=== PATIENT | female | born 1995 | race Caucasian/White ===

== ENCOUNTER 2017-06-17 16:40 | Emergency (ER) | payer OTHER ==
[~2017-06-17] VITALS: Ht 175.3 cm; Wt 118.5 kg
[2017-06-17] MEDS ORDERED: SERT-155 PO (16:51)
[2017-06-17] MEDS ORDERED: METO1TAB7 PO (16:51)
[2017-06-17] MEDS ORDERED: MONT10TA2 PO (16:51)
[2017-06-17] MEDS ORDERED: DOXY100C37 PO (18:33)
[2017-06-17] MEDS ORDERED: TESS100C PO (18:34)
[2017-06-17] MEDS ORDERED: VENTAER INH (18:34)
[2017-06-17 18:41] VITALS: BP 136/72
--- NOTE | 2017-06-18 14:29 | REP ---
Chest x-ray: Two views. History: Shortness of breath and cough. No comparison views. Findings: The lungs are well inflated and clear. Pleural angles are sharp. Heart size is normal. No significant bony abnormality is seen. Impression: No active disease. Signed by George Mcbride MD 06/18/2017 08:07 A
== END 2017-06-17 18:41 | disposition home or self-care (01) ==
LOC: M ED 16:40
DX: J40 Bronchitis, not specified as acute or chronic (principal); F41.9 Anxiety disorder, unspecified; F33.9 Major depressive disorder, recurrent, unspecified; N83.299 Other ovarian cyst, unspecified side; J30.89 Other allergic rhinitis; Z79.899 Other long term (current) drug therapy

== ENCOUNTER → 2017-09-21 | Outpatient (REF) | payer OTHER | LOC: M LAB REF 18:23 | DX: D48.5 Neoplasm of uncertain behavior of skin (principal) ==

== ENCOUNTER 2018-10-07 11:20 | Emergency (ER) | payer OTHER ==
[~2018-10-07] VITALS: Ht 172.7 cm; Wt 119.1 kg
[~2018-10-07 11:20] MED LIST: DOXY100C37 PO; METO1TAB7 PO; MONT10TA2 PO; SERT-155 PO; TESS100C PO; VENTAER INH
[2018-10-07 11:58] LABS: BASO % 0.1 % (0.0-1.0); EOS # 0.2 10^3/uL (0.0-0.50); EOS % 0.9 % (0.0-3.0); HEMATOCRIT 39.1 % (36.0-47.0); HEMOGLOBIN 12.6 g/dl (12.0-15.5); LYMPH # 2.7 10^3/uL (1.5-6.5); LYMPH % 13.8 % (24.0-44.0); MEAN CORPUSCULAR HEMOGLOBIN 23.1 pg (27.0-33.0); MEAN CORPUSCULAR HGB CONC 32.2 g/dl (32.0-36.5); MEAN CORPUSCULAR VOLUME 71.6 fl (80.0-96.0); MONO # 0.7 10^3/uL (0.0-0.8); MONO % 3.7 % (0.0-5.0); NEUTROPHILS # 15.7 10^3/uL (1.8-7.7); NEUTROPHILS % 80.9 % (36.0-66.0); PLATELET COUNT, AUTOMATED 436 10^3/uL (150-450); RED BLOOD COUNT 5.46 10^6/uL (4.00-5.40); WHITE BLOOD COUNT 19.4 10^3/uL (4.0-10.0)
[2018-10-07] MEDS ORDERED: SUCRALFATE 1 GM TAB PO ONE (12:15)
[2018-10-07] MEDS ORDERED: GI COCKTAIL 50ML BTL(HYOSCYAMINE/MAALOX/LIDOCAINE VISCOUS)(1:3:1) PO ONE (12:15)
[2018-10-07] MEDS ORDERED: PANTOPRAZOLE 40MG INJ (PROTONIX) (C9113) IV ONE (12:15)
[2018-10-07] MEDS ORDERED: KETOROLAC 30 MG/ML VIAL (J1885) IV ONE (12:15)
[2018-10-07] MEDS ORDERED: ONDANSETRON 4MG/2ML VIAL (J2405) IV ONE (12:15)
[2018-10-07] MEDS ORDERED: NS 1,000 ML IV ONE (12:15)
[2018-10-07 12:29] LABS: ALBUMIN 3.6 GM/DL (3.2-5.2); ALT/SGPT 51 U/L (12-78); BILIRUBIN,DIRECT 0.1 MG/DL (0.0-0.2); BILIRUBIN,TOTAL 0.3 MG/DL (0.2-1.0); BLOOD UREA NITROGEN 9 MG/DL (7-18); CALCIUM LEVEL 8.7 MG/DL (8.5-10.1); CARBON DIOXIDE LEVEL 21 MEQ/L (21-32); CHLORIDE LEVEL 104 MEQ/L (98-107); CREATININE FOR GFR 0.85 MG/DL (0.55-1.30); GLOMERULAR FILTRATION RATE > 60.0 (>60); GLUCOSE, FASTING 172 MG/DL (70-100); LIPASE 80 U/L (73-393); POTASSIUM SERUM 3.8 MEQ/L (3.5-5.1); SODIUM LEVEL 137 MEQ/L (136-145); TOTAL PROTEIN 8.2 GM/DL (6.4-8.2)
[2018-10-07] MEDS ORDERED: ISOVUE-370 76% 100ML VIAL (Q9967) As Ordered ONE (12:38)
[2018-10-07 13:30] LABS: BILIRUBIN, URINE MANUAL NEGATIVE (NEGATIVE); GLUCOSE, URINE (UA) MANUAL NEGATIVE (NEGATIVE); KETONE, URINE MANUAL NEGATIVE (NEGATIVE); UROBILINOGEN, URINE MANUAL NORMAL (NORMAL)
[2018-10-07 13:38] LABS: BACTERIA, URINE MOD AMOUNT; HYALINE CAST, URINE NONE SEEN /lpf (0-1); SQUAMOUS EPITHELIAL CELL URINE MOD AMOUNT /hpf (SMALL AMT)
[2018-10-07] MEDS ORDERED: ONDA4TAB6 PO (14:02)
[2018-10-07] MEDS ORDERED: MACR100C43 PO (14:02)
[2018-10-07] MEDS ORDERED: CARA1TAB6 PO (14:02)
[2018-10-07] MEDS ORDERED: RANI15TA PO (14:02)
[2018-10-07 14:07] VITALS: BP 120/84
--- NOTE | 2018-10-07 14:19 | REP ---
CT ABDOMEN/PELVIS WITH IV CONTRAST ONLY: 10/07/2018. CLINICAL HISTORY: Epigastric pain, vomiting, diarrhea. History of peptic ulcer. TECHNIQUE: Bolus of 100 mL Isovue 370, scanning through the abdomen/pelvis with both coronal and sagittal reconstructions provided. FINDINGS: CT ABDOMEN: There are no prior studies. The lung bases are clear. Heart is not enlarged. There is no pericardial thickening or effusion. I see no hiatal hernia. There is mild hepatomegaly with a 20 cm diameter liver in the midclavicular line for the right lobe. Some homogeneous low density may reflect fatty infiltration of the liver. No hepatic mass, cyst, biliary dilatation, nor adjacent ascites. Spleen has a homogeneous appearance without mass or focal lesion. It is not grossly enlarged. Adrenal glands are normal. The gallbladder shows no calcified stone or mass. Pancreas unremarkable. Stomach is collapsed without any significant fluid or food residue within. No abnormal wall thickening or mass. Aorta is without aneurysm. There is no periaortic other retroperitoneal pathologic-sized lymphadenopathy. A few scattered small nodes are seen which is normal in the mesentery. Small bowel loops are without dilatation. No edema adjacent to those small bowel loops. Abdominal portion of the colon shows small amounts of scattered stool and gas without dilatation. There is no sign of colitis, diverticulitis, stricture, or mass. Lung window review of all CT slices shows no perforation or free air. No ascites in the peroneal gutter. Bone windows show lumbar and lower thoracic spine and their posterior elements intact as are the lower ribs. CT PELVIS: Sacrum, SI joints, pelvis, hips, and ischia along with symphysis pubis, all unremarkable. Kidneys show no stone, hydronephrosis, mass, or cyst. There is no hydroureter, ureteral stone or bladder stone. Bladder is nearly empty but no wall thickening or mass. Uterus not enlarged. The right ovary, shows multiple follicles and a 3.8 cm cyst. The left ovary has follicles. No pelvic free fluid or adenopathy. No ventral or inguinal hernia nor pathologic-sized inguinal adenopathy. The distal left colon, sigmoid, and rectum are grossly intact with no inflammatory changes in the fat adjacent. I see no inflammatory changes about the cecum, and the appendix is seen and normal extending towards the midline with its distal tip resting on the psoas muscle just lateral to midline at the level of the umbilicus. IMPRESSION: 1. There is no hiatal hernia, gastric distension, wall thickening, or mass. Stomach collapsed with only minimal residual fluid. 2. Liver enlarged with a 20 cm vertical diameter midclavicular line and low density that may reflect fatty infiltration. 3. Spleen unremarkable. No ascites or adenopathy in upper abdomen. 4. Adrenal glands, kidneys, pancreas, gallbladder, small bowel loops, and colon in the abdomen proper are normal. 5. A 3.8 cm cyst right ovary with both ovaries showing smaller follicles and no solid mass or pelvic free fluid. 6. No abdominal or pelvic lymphadenopathy, ventral or inguinal hernia, nor pathologic inguinal adenopathy. 7. No colitis, diverticulitis, stricture, or mass. Appendix normal. Small bowel loops intact. Electronically Signed by Peyman Saab MD 10/07/2018 07:10 P
== END 2018-10-07 14:12 | disposition home or self-care (01) ==
LOC: M ED 11:20
DX: N30.00 Acute cystitis without hematuria (principal); I10 Essential (primary) hypertension; K27.9 Peptic ulcer, site unspecified, unspecified as acute or chronic, without hemorrhage or perforation; R16.0 Hepatomegaly, not elsewhere classified; N83.291 Other ovarian cyst, right side
CPT/HCPCS: 74177; 80048; 80076; 81000; 83690; 85025; 87086; 96374; 96375; 99284; C9113; J1885; J2405; Q9967

== ENCOUNTER → 2018-11-27 | Outpatient (REF) | payer OTHER ==
[~2018-11-27] MED LIST changes: +CARA1TAB6 PO; +MACR100C43 PO; +ONDA4TAB6 PO; +RANI15TA PO
[2018-11-27 13:14] LABS: HEMATOCRIT 40.4 % (36.0-47.0); HEMOGLOBIN 12.5 g/dl (12.0-15.5); MEAN CORPUSCULAR HEMOGLOBIN 22.4 pg (27.0-33.0); MEAN CORPUSCULAR HGB CONC 30.9 g/dl (32.0-36.5); MEAN CORPUSCULAR VOLUME 72.5 fl (80.0-96.0); PLATELET COUNT, AUTOMATED 460 10^3/uL (150-450); RED BLOOD COUNT 5.57 10^6/uL (4.00-5.40); WHITE BLOOD COUNT 15.4 10^3/uL (4.0-10.0)
[2018-11-27 13:44] LABS: ATYPICAL LYMPH 1 % (0-5); BASOPHILS 1 % (0-4); EOSINOPHILS 3 % (0-5); LYMPHOCYTES 31 % (16-52); MONOCYTES 2 % (0-8); NEUTROPHILS 58 % (35-75); PLATELET ESTIMATE NORMAL (NORMAL)
[2018-11-27 13:45] LABS: ANISOCYTOSIS 1+; MICROCYTOSIS 1+; POIKILOCYTOSIS 1+; POLYCHROMASIA 1+
== END ==
LOC: M LAB REF 12:13
PROVIDERS: ATTEND Family Medicine Addiction Medicine
DX: D72.828 Other elevated white blood cell count (principal)

== ENCOUNTER → 2018-12-28 | Outpatient (REF) | payer OTHER ==
[2018-12-28 13:16] LABS: HEMATOCRIT 42.6 % (36.0-47.0); HEMOGLOBIN 12.9 g/dl (12.0-15.5); MEAN CORPUSCULAR HEMOGLOBIN 22.3 pg (27.0-33.0); MEAN CORPUSCULAR HGB CONC 30.3 g/dl (32.0-36.5); MEAN CORPUSCULAR VOLUME 73.7 fl (80.0-96.0); PLATELET COUNT, AUTOMATED 454 10^3/uL (150-450); RED BLOOD COUNT 5.78 10^6/uL (4.00-5.40); WHITE BLOOD COUNT 17.2 10^3/uL (4.0-10.0)
[2018-12-28 13:44] LABS: ATYPICAL LYMPH 1 % (0-5); EOSINOPHILS 4 % (0-5); LYMPHOCYTES 37 % (16-52); MONOCYTES 1 % (0-8); NEUTROPHILS 57 % (35-75); PLATELET ESTIMATE NORMAL (NORMAL)
== END ==
LOC: M LAB REF 12:17
PROVIDERS: ATTEND Family Medicine Addiction Medicine
DX: D72.828 Other elevated white blood cell count (principal)

== ENCOUNTER → 2019-02-12 | Outpatient (CLI) | payer OTHER ==
--- NOTE | 2019-02-12 08:37 | REP ---
Clinical: Acute epigastric and right lower quadrant pain. Technique: Real time bates scale ultrasound examination using curved array transducer. Findings: Liver and pancreas are normal in contour, size, echogenicity without focal hepatic or pancreatic lesion identified. Gallbladder demonstrates small mobile gallstones without wall thickening or pericholecystic fluid. No biliary ductal dilatation is appreciated and the common bile duct measures 3.9 mm diameter. The right kidney is normal in reniform shape and echogenicity without hydronephrosis or nephrolithiasis and measures 11.7 x 5.7 x 4.2 cm. Further evaluation of the right lower quadrant demonstrates no free fluid, definable appendix, or obvious abnormality by sonographic evaluation. Impression: 1. Cholelithiasis. 2. No sonographic evidence to suggest acute appendicitis. Electronically Signed by Edouard Petty MD 02/12/2019 08:03 A
== END ==
LOC: M RAD 06:56
PROVIDERS: ATTEND Internal Medicine Gastroenterology
DX: R10.13 Epigastric pain (principal); K80.20 Calculus of gallbladder without cholecystitis without obstruction

== ENCOUNTER 2019-03-07 12:20 | Day surgery (SDC) | payer OTHER ==
[~2019-03-07] VITALS: Ht 170.2 cm; Wt 119.7 kg
[2019-03-07] MEDS: NS 1,000 ML IV ONE (07:00)
[2019-03-07] MEDS ORDERED: PROPOFOL 200 MG/20 ML VIAL As Ordered ONE ×2 (13:02→13:15)
[2019-03-07] MEDS ORDERED: LIDOCAINE 2% INJ 100 MG/5 ML SDV (FOR ANES.) As Ordered ONE (13:02)
--- NOTE | 2019-03-07 13:45 | ROOR ---
Patient Name: Kelsy Rutherford Procedure Date: 03/07/2019 12:57 PM Date of : 1995 Age: 23 Room: [facility] Gender: Female Note Status: Finalized Procedure: Upper GI endoscopy Indications: Epigastric abdominal pain, Dysphagia Providers: Aston Martinez MD Referring MD: Philip STARK MD Requesting Provider: Medicines: Monitored Anesthesia Care Complications: No immediate complications. Procedure: Pre-Anesthesia Assessment: - Prior to the procedure, a History and Physical was performed, and patient medications and allergies were reviewed. The patient is competent. The risks and benefits of the procedure and the sedation options and risks were discussed with the patient. All questions were answered and informed consent was obtained. Patient identification and proposed procedure were verified by the physician, the nurse and the anesthesiologist in the procedure room. Mental Status Examination: alert and oriented. Airway Examination: normal oropharyngeal airway and neck mobility. Respiratory Examination: clear to auscultation. CV Examination: normal. Prophylactic Antibiotics: The patient does not require prophylactic antibiotics. Prior Anticoagulants: The patient has taken no previous anticoagulant or antiplatelet agents. ASA Grade Assessment: II - A patient with mild systemic disease. After reviewing the risks and benefits, the patient was deemed in satisfactory condition to undergo the procedure. The anesthesia plan was to use monitored anesthesia care (MAC). Immediately prior to administration of medications, the patient was re-assessed for adequacy to receive sedatives. The heart rate, respiratory rate, oxygen saturations, blood pressure, adequacy of pulmonary ventilation, and response to care were monitored throughout the procedure. The physical status of the patient was re-assessed after the procedure. The Endoscope was introduced through the mouth, and advanced to the second part of duodenum. The upper GI endoscopy was accomplished without difficulty. The patient tolerated the procedure well. Findings: The Z-line was regular and was found 40 cm from the incisors. Biopsies were obtained from the proximal and distal esophagus with cold forceps for histology of suspected eosinophilic esophagitis. Verification of patient identification for the specimen was done by the physician and nurse using the patient's name, date and medical record number. Patchy mild inflammation characterized by erythema and granularity was found in the gastric antrum. Biopsies were taken with a cold forceps for Helicobacter pylori testing. The duodenal bulb and second portion of the duodenum were normal. Biopsies for histology were taken with a cold forceps for evaluation of celiac disease. Impression: - Z-line regular, 40 cm from the incisors. Biopsied. - Gastritis. Biopsied. - Normal duodenal bulb and second portion of the duodenum. Biopsied. Recommendation: - Patient has a contact number available for emergencies. The signs and symptoms of potential delayed complications were discussed with the patient. Return to normal activities tomorrow. Written discharge instructions were provided to the patient. - Resume previous diet. - Continue present medications. - Await pathology results. - Follow an antireflux regimen. - Return to GI clinic if persistent symptoms or new symptoms. - Telephone GI clinic for pathology results in 2 weeks. - Return to primary care physician. Aston Martinez MD Aston Martinez MD 03/07/2019 1:44:53 PM Electronically signed by Aston Martinez MD Number of Addenda: 0 Note Initiated On: 03/07/2019 12:57 PM Estimated Blood Loss: Estimated blood loss was minimal.
[2019-03-07 14:16] VITALS: BP 139/86
== END 2019-03-07 14:10 | disposition home or self-care (01) ==
LOC: M OPP 12:20
PROVIDERS: ATTEND Internal Medicine Gastroenterology
DX: K29.70 Gastritis, unspecified, without bleeding (principal); R10.13 Epigastric pain; R13.10 Dysphagia, unspecified; Z79.899 Other long term (current) drug therapy; Z91.048 Other nonmedicinal substance allergy status

== ENCOUNTER → 2019-04-19 | Outpatient (REF) | payer OTHER ==
[~2019-04-19] MED LIST changes: +PROZ20CA11 PO; -SERT-155 PO; +SERT50TA29 PO
[2019-04-19 13:11] LABS: HEMATOCRIT 38.3 % (36.0-47.0); HEMOGLOBIN 11.8 g/dl (12.0-15.5); MEAN CORPUSCULAR HEMOGLOBIN 22.3 pg (27.0-33.0); MEAN CORPUSCULAR HGB CONC 30.8 g/dl (32.0-36.5); MEAN CORPUSCULAR VOLUME 72.5 fl (80.0-96.0); PLATELET COUNT, AUTOMATED 385 10^3/uL (150-450); RED BLOOD COUNT 5.28 10^6/uL (4.00-5.40); WHITE BLOOD COUNT 13.8 10^3/uL (4.0-10.0)
[2019-04-19 13:21] LABS: ALBUMIN 3.4 GM/DL (3.2-5.2); ALT/SGPT 29 U/L (12-78); BILIRUBIN,TOTAL 0.4 MG/DL (0.2-1.0); BLOOD UREA NITROGEN 8 MG/DL (7-18); CALCIUM LEVEL 8.6 MG/DL (8.5-10.1); CARBON DIOXIDE LEVEL 23 MEQ/L (21-32); CHLORIDE LEVEL 106 MEQ/L (98-107); CHOLESTEROL LEVEL 186 MG/DL (<200); CHOLESTEROL RISK RATIO 4.428 (<5); FREE T4 1.24 NG/DL (0.76-1.46); GLOMERULAR FILTRATION RATE > 60.0 (>60); GLUCOSE, FASTING 100 MG/DL (70-100); HDL CHOLESTEROL 42 MG/DL (>40); LDL CHOLESTEROL 104 MG/DL (<100); NON-HDL-C 144 MG/DL; POTASSIUM SERUM 3.9 MEQ/L (3.5-5.1); SODIUM LEVEL 138 MEQ/L (136-145); TOTAL PROTEIN 7.3 GM/DL (6.4-8.2); TRIGLYCERIDES LEVEL 198 MG/DL (<150)
[2019-04-19 13:23] LABS: TOTAL 25(OH) VITAMIN D 13.2 NG/ML (30.0-100.0)
[2019-04-19 13:35] LABS: HEMOGLOBIN A1c 5.5 %
[2019-04-19 13:51] LABS: ANISOCYTOSIS 1+; EOSINOPHILS 5 % (0-3); LYMPHOCYTES 37 % (16-44); MICROCYTOSIS 1+; MONOCYTES 3 % (0-5); NEUTROPHILS 55 % (28-66); PLATELET ESTIMATE NORMAL (NORMAL)
== END ==
LOC: M LAB REF 11:48
PROVIDERS: ATTEND Nurse Practitioner Family
DX: Z00.00 Encounter for general adult medical examination without abnormal findings (principal)

== ENCOUNTER → 2019-08-05 | Outpatient (CLI) | payer OTHER ==
--- NOTE | 2019-08-08 15:32 | SLEEPHOME ---
DATE OF STUDY: 08/05/2019 ORDERED BY: CLAIRE Bahena Diagnostic home sleep testing was performed due to concern for the obstructive sleep apnea syndrome in this patient with history of excessive somnolence. For testing a nocturnal T3 respiratory monitoring device was used. Continuous record was made of pulse, oxygen saturation, airflow, chest, abdominal strain and body position. 9 hours and 59 minutes of data were reviewed. There were 7 hours and 17 minutes marked as time in bed. During the interval marked time in bed, there were 81 respiratory events identified of 10 seconds in duration or greater for a respiratory event index of 11.1. The events were primarily obstructive. 13 mixed and central apneas were seen. The baseline pulse rate was 67 beats per minute. Pulse rate ranged 50-92. Baseline saturation 96%. Lowest oxygen saturation 85%. Testing was performed in both the supine and nonsupine positions. IMPRESSION: Abnormal home sleep testing with repetitive respiratory events and oxygen desaturations to 85% with a respiratory event index of 11.1 is consistent with the obstructive sleep apnea syndrome. RECOMMENDATIONS: The patient should be encouraged to undergo formal sleep evaluation.
== END ==
LOC: M SLEEP HO 11:16
PROVIDERS: ATTEND Nurse Practitioner Family
DX: G47.33 Obstructive sleep apnea (adult) (pediatric) (principal)

== ENCOUNTER → 2019-09-26 | Outpatient (REF) | payer OTHER, MEDICAID ==
[~2019-09-26] MED LIST changes: -MONT10TA2 PO; +MONT10TA4 PO
[2019-09-26 14:26] LABS: BASO % 0.4 % (0.0-1.0); EOS # 0.7 10^3/uL (0.0-0.5); EOS % 6.2 % (0.0-3.0); HEMATOCRIT 40.8 % (36.0-47.0); HEMOGLOBIN 12.1 g/dl (12.0-15.5); LYMPH # 3.9 10^3/uL (1.5-5.0); LYMPH % 35.5 % (24.0-44.0); MEAN CORPUSCULAR HGB CONC 29.7 g/dl (32.0-36.5); MONO # 0.4 10^3/uL (0.0-0.8); MONO % 3.5 % (0.0-5.0); NEUTROPHILS % 53.9 % (36.0-66.0); PLATELET COUNT, AUTOMATED 384 10^3/uL (150-450); RED BLOOD COUNT 5.51 10^6/uL (4.00-5.40)
[2019-09-26 14:27] LABS: CHOLESTEROL RISK RATIO 6.294 (<5)
[2019-09-26 14:39] LABS: HEMOGLOBIN A1c 5.5 %
== END ==
LOC: M LAB REF 13:20
PROVIDERS: ATTEND Nurse Practitioner Family
DX: Z00.00 Encounter for general adult medical examination without abnormal findings (principal)

== ENCOUNTER → 2023-06-26 | Outpatient (CLI) | payer OTHER ==
[~2023-06-26] MED LIST changes: +DOXY-443 PO; -DOXY100C37 PO; -MONT10TA4 PO; +MONT10TA97 PO
== END ==
LOC: M PLAIMG 11:14
PROVIDERS: ATTEND Physician Assistant
DX: R06.02 Shortness of breath (principal)

== ENCOUNTER → 2023-10-13 | Outpatient (CLI) | payer OTHER | LOC: M PLAIMG 09:08 | PROVIDERS: ATTEND Nurse Practitioner Family | DX: R06.02 Shortness of breath (principal); R91.8 Other nonspecific abnormal finding of lung field ==

== ENCOUNTER → 2023-10-17 | Outpatient (CLI) | payer OTHER ==
[~2023-10-17] MED LIST changes: +METHACHOLINE KIT INH ONE
== END ==
LOC: M CARPUL 08:16
PROVIDERS: ATTEND Internal Medicine Pulmonary Disease
DX: R06.02 Shortness of breath (principal)
CPT/HCPCS: 94070; 95070; J7674

== ENCOUNTER → 2023-11-28 | Outpatient (REF) | payer OTHER ==
[~2023-11-28] MED LIST changes: -METHACHOLINE KIT INH ONE
[2023-11-28 18:42] LABS: BASO # 0.1 10^3/uL (0.0-0.2); BASO % 0.5 % (0.0-1.0); EOS # 0.3 10^3/uL (0.0-0.5); EOS % 2.2 % (0.0-3.0); HEMATOCRIT 40.5 % (36.0-47.0); HEMOGLOBIN 12.2 g/dl (12.0-15.5); LYMPH # 4.5 10^3/uL (1.5-5.0); LYMPH % 35.8 % (24.0-44.0); MEAN CORPUSCULAR HEMOGLOBIN 22.3 pg (27.0-33.0); MEAN CORPUSCULAR HGB CONC 30.1 g/dl (32.0-36.5); MEAN CORPUSCULAR VOLUME 73.9 fl (80.0-96.0); MONO # 0.6 10^3/uL (0.0-0.8); MONO % 4.7 % (2.0-8.0); NEUTROPHILS % 55.8 % (36.0-66.0); PLATELET COUNT, AUTOMATED 394 10^3/uL (150-450); RED BLOOD COUNT 5.48 10^6/uL (4.00-5.40); WHITE BLOOD COUNT 12.5 10^3/uL (4.0-10.0)
[2023-11-28 18:56] LABS: ALBUMIN 3.8 G/DL (3.2-5.2); ALKALINE PHOSPHATASE 72 U/L (46-116); ALT/SGPT 39 U/L (7.0-40); AST/SGOT 43 U/L (<34); BILIRUBIN,TOTAL 0.5 MG/DL (0.3-1.2); BLOOD UREA NITROGEN 7 MG/DL (9-23); CALCIUM LEVEL 8.9 MG/DL (8.5-10.1); CARBON DIOXIDE LEVEL 23 MMOL/L (20-31); CHLORIDE LEVEL 102 MMOL/L (98-107); CHOLESTEROL LEVEL 172 MG/DL (<200); CREATININE FOR GFR 0.61 MG/DL (0.55-1.30); GLOMERULAR FILTRATION RATE > 60.0 (>60); GLUCOSE, FASTING 141 MG/DL (60-100); HDL CHOLESTEROL 35.8 MG/DL (>40); IRON (FE) 25 UG/DL (50-170); NON-HDL-C 136.2 MG/DL; PERCENT SATURATION 7.7 % (13.2-45.0); POTASSIUM SERUM 4.3 MMOL/L (3.5-5.1); SODIUM LEVEL 137 MMOL/L (136-145); TOTAL IRON BINDING CAPACITY 326 UG/DL (250-425); TOTAL PROTEIN 7.9 G/DL (5.7-8.2); TRIGLYCERIDES LEVEL 226 MG/DL (<150)
[2023-11-28 18:59] LABS: THYROID STIMULATING HORMONE 4.154 uIU/ML (0.55-4.78)
[2023-11-28 19:00] LABS: FERRITIN 49.3 NG/ML (7.3-270.7)
[2023-11-28 19:01] LABS: FOLATE > 24.0 NG/ML (>5.4); VITAMIN B12 LEVEL 487 PG/ML (211-911)
[2023-11-28 19:31] LABS: HIV 1&2 SCREEN NEGATIVE (NEGATIVE)
[2023-11-28 19:39] LABS: HEPATITIS C VIRUS ABY INDEX < 0.02 INDEX (<0.8)
== END ==
LOC: M LAB REF 17:15
PROVIDERS: ATTEND Physician Assistant
DX: Z11.59 Encounter for screening for other viral diseases (principal); F41.9 Anxiety disorder, unspecified; Z11.4 Encounter for screening for human immunodeficiency virus [HIV]

== ENCOUNTER → 2023-12-25 | Outpatient (CLI) | payer OTHER ==
[~2023-12-25] MED LIST changes: +DOXY-323 PO; -DOXY-443 PO
== END ==
LOC: M RAD 11:53
PROVIDERS: ATTEND Physician Assistant
DX: N83.201 Unspecified ovarian cyst, right side (principal)

== ENCOUNTER → 2024-03-07 | Outpatient (REF) | payer OTHER ==
[~2024-03-07] MED LIST changes: +ONDA-282 PO; -ONDA4TAB6 PO
[2024-03-07 18:07] LABS: BASO # 0.1 10^3/uL (0.0-0.2); BASO % 0.5 % (0.0-1.0); EOS # 0.3 10^3/uL (0.0-0.5); EOS % 2.3 % (0.0-3.0); HEMATOCRIT 36.5 % (36.0-47.0); HEMOGLOBIN 11.4 g/dl (12.0-15.5); LYMPH # 3.3 10^3/uL (1.5-5.0); LYMPH % 30.7 % (24.0-44.0); MEAN CORPUSCULAR HEMOGLOBIN 23.7 pg (27.0-33.0); MEAN CORPUSCULAR HGB CONC 31.2 g/dl (32.0-36.5); MEAN CORPUSCULAR VOLUME 75.9 fl (80.0-96.0); MONO # 0.4 10^3/uL (0.0-0.8); MONO % 3.8 % (2.0-8.0); NEUTROPHILS # 6.7 10^3/uL (1.5-8.5); PLATELET COUNT, AUTOMATED 330 10^3/uL (150-450); RED BLOOD COUNT 4.81 10^6/uL (4.00-5.40); WHITE BLOOD COUNT 10.9 10^3/uL (4.0-10.0)
[2024-03-07 18:23] LABS: FERRITIN 61.7 NG/ML (7.3-270.7)
[2024-03-07 18:25] LABS: BLOOD UREA NITROGEN 7 MG/DL (9-23); CALCIUM LEVEL 8.6 MG/DL (8.5-10.1); CARBON DIOXIDE LEVEL 23 MMOL/L (20-31); CHLORIDE LEVEL 106 MMOL/L (98-107); CREATININE FOR GFR 0.62 MG/DL (0.55-1.30); GLOMERULAR FILTRATION RATE > 60.0 (>60); GLUCOSE, FASTING 126 MG/DL (60-100); IRON (FE) 34 UG/DL (50-170); PERCENT SATURATION 11.3 % (13.2-45.0); POTASSIUM SERUM 3.8 MMOL/L (3.5-5.1); SODIUM LEVEL 138 MMOL/L (136-145); TOTAL IRON BINDING CAPACITY 301 UG/DL (250-425)
[2024-03-07 18:57] LABS: HEMOGLOBIN A1c 5.6 % (4.0-6.0)
== END ==
LOC: M LAB REF 16:17
PROVIDERS: ATTEND Physician Assistant
DX: E61.1 Iron deficiency (principal); R73.01 Impaired fasting glucose

== ENCOUNTER → 2024-07-25 | Outpatient (CLI) | payer OTHER ==
[~2024-07-25] MED LIST changes: -DOXY-323 PO; +DOXY-441 PO
[2024-07-25 16:43] LABS: BASO # 0.1 10^3/uL (0.0-0.2); BASO % 0.4 % (0.0-1.0); EOS # 0.4 10^3/uL (0.0-0.5); EOS % 2.8 % (0.0-3.0); HEMATOCRIT 40.3 % (36.0-47.0); HEMOGLOBIN 12.7 g/dl (12.0-15.5); LYMPH % 29.9 % (24.0-44.0); MEAN CORPUSCULAR HGB CONC 31.5 g/dl (32.0-36.5); MEAN CORPUSCULAR VOLUME 76.2 fl (80.0-96.0); MONO # 0.6 10^3/uL (0.0-0.8); MONO % 4.7 % (2.0-8.0); NEUTROPHILS # 8.3 10^3/uL (1.5-8.5); NEUTROPHILS % 61.9 % (36.0-66.0); PLATELET COUNT, AUTOMATED 363 10^3/uL (150-450); RED BLOOD COUNT 5.29 10^6/uL (4.00-5.40); WHITE BLOOD COUNT 13.4 10^3/uL (4.0-10.0)
== END ==
LOC: M WUC 11:35
PROVIDERS: ATTEND Physician Assistant
DX: E87.6 Hypokalemia (principal); D72.829 Elevated white blood cell count, unspecified

== ENCOUNTER → 2024-10-10 | Outpatient (REF) | payer OTHER ==
[2024-10-10 18:11] LABS: BASO % 0.4 % (0.0-1.0); EOS # 0.2 10^3/uL (0.0-0.5); EOS % 2.3 % (0.0-3.0); HEMATOCRIT 38.6 % (36.0-47.0); HEMOGLOBIN 12.3 g/dl (12.0-15.5); LYMPH # 2.6 10^3/uL (1.5-5.0); LYMPH % 31.6 % (24.0-44.0); MEAN CORPUSCULAR HEMOGLOBIN 24.5 pg (27.0-33.0); MEAN CORPUSCULAR HGB CONC 31.9 g/dl (32.0-36.5); MEAN CORPUSCULAR VOLUME 76.7 fl (80.0-96.0); MONO # 0.4 10^3/uL (0.0-0.8); MONO % 4.6 % (2.0-8.0); NEUTROPHILS # 5.1 10^3/uL (1.5-8.5); NEUTROPHILS % 60.5 % (36.0-66.0); PLATELET COUNT, AUTOMATED 315 10^3/uL (150-450); RED BLOOD COUNT 5.03 10^6/uL (4.00-5.40); WHITE BLOOD COUNT 8.4 10^3/uL (4.0-10.0)
[2024-10-10 18:31] LABS: PERCENT SATURATION 10.4 % (13.2-45.0)
== END ==
LOC: M LAB REF 16:31
PROVIDERS: ATTEND Physician Assistant
DX: E61.1 Iron deficiency (principal); D72.829 Elevated white blood cell count, unspecified

== ENCOUNTER 2025-08-18 09:48 | Day surgery (SDC) | payer OTHER ==
[~2025-08-18] VITALS: Ht 170.2 cm; Wt 121.9 kg
[~2025-08-18 09:48] MED LIST changes: +ADVA115A INH; +AMLO1TAB24 PO; +AMPH1CAP15 PO; +BUSP10TA PO; +FERR325T19 PO; +HYDR-643 PO; +LIDOCAINE 2% 100 MG/5 ML SDV (FOR ANES.) As Ordered ONE; +ONDANSETRON 4MG/2ML VIAL As Ordered ONE; +OXYMETAZOLINE 0.05% NASAL SPRAY As Ordered ONE; +PROA1AER2 INH; -PROZ20CA11 PO; +PROZ20CA25 PO; +ROCURONIUM BROMIDE 50MG/5ML VIAL As Ordered ONE; +SUGAMMADEX SODIUM 500 MG/5 ML VIAL As Ordered ONE; +dexAMETHasone 4 MG/ML 1 ML VIAL As Ordered ONE
[2025-08-18] MEDS ORDERED: LR 1,000 ML IV SCH (10:25)
[2025-08-18] MEDS ORDERED: MIDAZOLAM INJ 2 MG/2 ML VIAL As Ordered ONE (10:44)
[2025-08-18 11:25] LABS: HCG, SERUM QUALITATIVE NEGATIVE (NEGATIVE)
[2025-08-18] MEDS: AMPICILLIN SOD/SULBACTAM SOD 3 GM in DEXTROSE 5% (D5W) MINI-BAG PLU 100 ML IV ONE (11:43)
[2025-08-18] MEDS ORDERED: ACETAMINOPHEN 1000MG/100ML IV BAG As Ordered ONE (11:46)
[2025-08-18] MEDS: CHLORHEXIDINE GLUCONATE 0.12% 15 ML UDC As Ordered ONE (11:55)
[2025-08-18] MEDS: MORPHINE 2 MG/ML 1 ML VIAL IV PRN (12:59)
[2025-08-18] MEDS: HYDROMORPHONE HCL 0.5 MG/0.5 ML SYRINGE IV PRN (13:12)
[2025-08-18 14:05] VITALS: BP 140/84; TEMP 98.3; O2SAT 95
== END 2025-08-18 14:50 | disposition home or self-care (01) ==
LOC: M SDC 09:48
PROVIDERS: ATTEND Dentist
DX: K02.9 Dental caries, unspecified (principal); G47.30 Sleep apnea, unspecified; Z91.040 Latex allergy status; Z91.048 Other nonmedicinal substance allergy status; J30.1 Allergic rhinitis due to pollen; Z91.018 Allergy to other foods; Z79.899 Other long term (current) drug therapy
CPT/HCPCS: 36415; 84703; 88300; D7140; D7210; D7310; J0131; J0295; J0666; J1100; J1171; J2250; J2405; J3010